=== PATIENT | female | born 1995 | race Caucasian/White ===

== ENCOUNTER 2017-08-04 19:28 | Inpatient (IN) | payer SELFPAY ==
[~2017-08-04] VITALS: Ht 157.5 cm; Wt 51.1 kg
[2017-08-04 19:41] VITALS: BP 125/83; PULSE 115; RESP 16; TEMP 98.2; O2SAT 100
[2017-08-04 19:58] VITALS: RESP 18
[2017-08-04] MEDS ORDERED: IOHEXOL 350 MG/ML 10 ML VIAL (for RAD DIAG) IVCONTRAST ONE (19:59)
[2017-08-04 20:13] VITALS: BP 111/63; PULSE 110; RESP 16; O2SAT 100
--- NOTE | 2017-08-04 20:17 | RADRPT ---
EXAM DATE/TIME: 08/04/2017 19:48 [facility] COMPARISON: No previous studies available for comparison. INDICATIONS : Right side weakness RADIATION DOSE: 56.35 CTDIvol (mGy) This report was called by Dr. Spears to Dr. Acosta at 8: 15 PM MEDICAL HISTORY : None SURGICAL HISTORY : None. ENCOUNTER: Initial ACUITY: 1 day PAIN SCALE: 0/10 LOCATION: cranial TECHNIQUE: Multiple contiguous axial images were obtained of the head. Using automated exposure control and adj ustment of the mA and/or kV according to patient size, radiation dose was kept as low as reasonably a chievable to obtain optimal diagnostic quality images. DICOM format image data is available electro nically for review and comparison. FINDINGS: CEREBRUM: The ventricles are normal for age. No evidence of midline shift, mass lesion, hemorrhage or acute in farction. No extra-axial fluid collections are seen. POSTERIOR FOSSA: The cerebellum and brainstem are intact. The 4th ventricle is midline. The cerebellopontine angle i s unremarkable. EXTRACRANIAL: The visualized portion of the orbits is intact. SKULL: The calvaria is intact. No evidence of skull fracture. CONCLUSION: Normal examination for a patient of this age. Henri Spears MD on August 04, 2017 at 20:12 Board Certified Radiologist. This report was verified electronically.
[2017-08-04 20:20] LABS: AUTOMATED NEUTROPHIL # 3.3 TH/MM3 (1.8-7.7); BASOPHIL % 0.5 % (0.0-2.0); EOSINOPHIL # 0.1 TH/MM3 (0-0.4); EOSINOPHIL % 1.7 % (0.0-4.0); HEMATOCRIT 42.4 % (35.0-46.0); HEMOGLOBIN 14.4 GM/DL (11.6-15.3); LYMPH % 38.7 % (9.0-44.0); LYMPHOCYTE # 2.4 TH/MM3 (1.0-4.8); MEAN CELL VOLUME 89.2 FL (80.0-100.0); MEAN CORPUSCULAR HEMOGLOBIN 30.3 PG (27.0-34.0); MEAN PLATELET VOLUME 7.1 FL (7.0-11.0); MONO % 5.4 % (0.0-8.0); MONOCYTE # 0.3 TH/MM3 (0-0.9); NEUT % 53.7 % (16.0-70.0); PLATELET COUNT 258 TH/MM3 (150-450); RED BLOOD COUNT 4.75 MIL/MM3 (4.00-5.30); RED CELL DISTRIBUTION WIDTH 12.5 % (11.6-17.2); WHITE BLOOD COUNT 6.2 TH/MM3 (4.0-11.0)
[2017-08-04 20:29] LABS: PROTHROMBIN TIME - PATIENT 10.5 SEC (9.8-11.6)
[2017-08-04] MEDS ORDERED: MISCELLANEOUS NURSING INFORMATION XX PRN (20:30)
[2017-08-04] MEDS ORDERED: SODIUM CHLORIDE 0.9% 50 ML BAG IVF ONE (20:30)
[2017-08-04] MEDS ORDERED: ALTEPLASE BOLUS 9 MG/9 ML SYR IV ONE (20:30)
[2017-08-04] MEDS ORDERED: ALTEPLASE DRIP IV ONE (20:30)
--- NOTE | 2017-08-04 20:49 | RADRPT ---
EXAM DATE/TIME: 08/04/2017 19:52 [facility] COMPARISON: No previous studies available for comparison. INDICATIONS : Stroke alert, right sided weakenss. IV CONTRAST: 90 cc Omnipaque 350 (iohexol) IV ; Cumulative dose for multiple exams. RADIATION DOSE: 8.84 CTDIvol (mGy) ; Combined studies MEDICAL HISTORY : None SURGICAL HISTORY : None. ENCOUNTER: Initial ACUITY: 1 day PAIN SCALE: 0/10 LOCATION: cranial TECHNIQUE: Volumetric scanning was performed using a multi-row detector CT scanner. The data was post processed with a variety of visualization algorithms including full volume maximum intensity projection, multi -planar sliding thin slab reformation, curved planar reformation, and surface rendering techniques. Using automated exposure control and adjustment of the mA and/or kV according to patient size, radiat ion dose was kept as low as reasonably achievable to obtain optimal diagnostic quality images. DICO M format image data is available electronically for review and comparison. FINDINGS: There is excellent visualization of the major intracranial arteries out to the second-order branch ve ssels. There is no evidence for aneurysm, vessel truncation or stenosis, and no evidence for vascula r malformation. CONCLUSION: Normal examination for a patient of this age. Henri Spears MD on August 04, 2017 at 20:43 Board Certified Radiologist. This report was verified electronically.
[2017-08-04 20:50] LABS: TROPONIN I LESS THAN 0.02 NG/ML (0.02-0.05)
--- NOTE | 2017-08-04 20:53 | PD ---
HPI Chief Complaint: Stroke Alert Time Seen by Provider: 19:50 Travel History International Travel<30 days: No Contact w/Intl Traveler<30days: No Traveled to known affect area: No History of Present Illness HPI 22-year-old female came to the emergency room with history of shortness of breath sudden onset while she was with her friend at a bar at 6:30 PM. Patient says that she has had 4 cocktails starting from noon up until 6:30 PM. She was sitting and talking with her when she suddenly started to feel short of breath with some chest pain on her right side moving to the center of the chest. She felt like she could not catch her breath. Patient has experienced this kind of sensation in the past which has been diagnosed as panic attacks. Patient does have history of anxiety and depression although currently she is not on any medications. She recognizes this as her panic attack and asked her friend to continue talking to her so that she could calm down. However when her condition was not improving her friend called 911. Patient is from out of town. She is from [place] and currently her and her girlfriend are visiting. As per EMS when they arrived they noticed that she was initially hyperventilating followed by a witnessed syncopal episode in front of them. There was no seizure-like activity at that point. Patient was unconscious for about a minute and after that when she started to come around they noticed that her right upper and right lower extremity was weak. There was inconsistency with her motor activity on the right side. However they did recognize that there was some weakness which prompted them to bring her to the emergency room. Patient was initially tachycardic but after she started to calm down her heart rate came down to the 90s as per EMS. Upon arrival she was a GCS of 15 and hemodynamically stable. She did tell me that she has never experienced this kind of weakness in the past. She says that there is decreased sensation on her right upper and lower extremity as well. Besides anxiety, depression and asthma she has no other medical issues. Patient denies doing any illicit drugs today. [facility] Past Medical History Narrative Medical List of her past medical, surgical, social and family history is reviewed from the nursing note. Asthma: Yes Immunizations Current: Yes Tetanus Vaccination: Unknown Influenza Vaccination: No ?: Unknown LMP: 07/11/17 Social History Alcohol Use: Yes (socially) Tobacco Use: No Substance Use: No Allergies-Medications (Allergen,Severity, Reaction): Coded Allergies: No Known Allergies (Unverified , 08/04/17) Comments No known drug allergies. Reported Meds & Prescriptions Reported Meds & Active Scripts Active Narrative Medication List of her home medications reviewed from the nursing note. Review of Systems Except as stated in HPI: all other systems reviewed are Neg Respiratory: Positive: Shortness of Breath Neurologic: Positive: Weakness Physical Exam Narrative GENERAL: Awake, alert, anxious, no obvious distress SKIN: Focused skin assessment warm/dry. HEAD: Atraumatic. Normocephalic. EYES: Pupils equal and round. No scleral icterus. No injection or drainage. ENT: No nasal bleeding or discharge. Mucous membranes pink and moist. NECK: Trachea midline. No JVD. CARDIOVASCULAR: Regular rate and rhythm. No murmur appreciated. RESPIRATORY: No accessory muscle use. Clear to auscultation. Breath sounds equal bilaterally. GASTROINTESTINAL: Abdomen soft, non-tender, nondistended. Hepatic and splenic margins not palpable. MUSCULOSKELETAL: No obvious deformities. No clubbing. No cyanosis. No edema. NEUROLOGICAL: Awake and alert. No obvious cranial nerve deficits. Patient has no movement of her right upper and right lower extremity. Sensation is decreased. NIH stroke score of 9 PSYCHIATRIC: Appropriate mood and affect; insight and judgment normal. Data Data Last Documented VS Vital Signs Date Time Temp Pulse Resp B/P (MAP) Pulse Ox O2 Delivery O2 Flow Rate FiO2 08/04/17 20:13 110 16 111/63 (79) 100 Room Air 08/04/17 19:41 98.2 Orders Orders Diet Npo (08/05/17 Breakfast) Activity Bed Rest (08/04/17 ) Electrocardiogram (08/04/17 ) I-Stat Profile (08/04/17 19:50) Prothrombin Time / Inr (Pt) (08/04/17 19:50) Act Partial Throm Time (Ptt) (08/04/17 19:50) Complete Blood Count With Diff (08/04/17 19:50) Fibrinogen (08/04/17 19:50) Creatine Kinase (Cpk) (08/04/17 19:50) Troponin I (08/04/17 19:50) Ua Includes Microscopic (08/04/17 19:50) Drug Screen, Random Urine (08/04/17 19:50) Type And Screen (08/04/17 19:50) Ct Brain W/O Iv Contrast(Rout) (08/04/17 ) Cta Brain W Iv Contrast W 3d (08/04/17 19:50) Cta Neck W Iv Contrast W 3d (08/04/17 19:50) Beta Hcg (Quant/Titer) (08/04/17 19:50) Consult Neurology (08/04/17 ) Blood Glucose (08/04/17 19:50) Ecg Monitoring (08/04/17 19:50) Neuro Checks Q2HX12,Q4H (08/04/17 19:50) Nursing Bedside Swallow Assess .ONCE (08/04/17 19:50) Iv Access Insert/Monitor (08/04/17 19:50) NPO (08/04/17 19:50) Oximetry (08/04/17 19:50) Resp Oxygen Nc Stroke (08/04/17 ) Cath For Specimen (08/04/17 19:50) Alcohol (Ethanol) (08/04/17 19:54) (Hub Use Only)Inp Phy Cons/Ref (08/04/17 ) Iohexol 350 Inj (Omnipaque 350 Inj) (08/04/17 19:59) ^ Call Pharmacy (08/04/17 20:28) Nih Stroke Scale - Nihss .ONCE (08/04/17 20:28) Urinary Catheter Insert/Apply (08/04/17 20:28) Anticoagulant Alert (08/04/17 20:28) ^ Post Infusion Restrictions (08/04/17 20:28) ^ Medication Alert (08/04/17 20:28) Vital Signs (Adult) .As directed (08/04/17 20:28) Notify Dr: Blood Pressure (08/04/17 20:28) ^ Medication Alert (08/04/17 20:28) Alteplase Bolus (Activase Bolus) (08/04/17 20:30) Alteplase Drip (Activase Drip) (08/04/17 20:30) Sodium Chloride 0.9% Inj (Ns Inj) (08/04/17 20:30) Misc Nursing Information (08/04/17 20:30) Resp Oxygen Nc Stroke (08/04/17 ) Admit Order (Ed Use Only) (08/04/17 20:43) Labs Laboratory Tests Test 08/04/17 19:50 08/04/17 20:15 White Blood Count 6.2 TH/MM3 Red Blood Count 4.75 MIL/MM3 Hemoglobin 14.4 GM/DL Bedside Hemoglobin 14.3 G/DL Hematocrit 42.4 % Bedside Hematocrit 42.0 % Mean Corpuscular Volume 89.2 FL Mean Corpuscular Hemoglobin 30.3 PG Mean Corpuscular Hemoglobin Concent 34.0 % Red Cell Distribution Width 12.5 % Platelet Count 258 TH/MM3 Mean Platelet Volume 7.1 FL Neutrophils (%) (Auto) 53.7 % Lymphocytes (%) (Auto) 38.7 % Monocytes (%) (Auto) 5.4 % Eosinophils (%) (Auto) 1.7 % Basophils (%) (Auto) 0.5 % Neutrophils # (Auto) 3.3 TH/MM3 Lymphocytes # (Auto) 2.4 TH/MM3 Monocytes # (Auto) 0.3 TH/MM3 Eosinophils # (Auto) 0.1 TH/MM3 Basophils # (Auto) 0.0 TH/MM3 CBC Comment DIFF FINAL Differential Comment Erythrocyte Sedimentation Rate 1 mm/hr Prothrombin Time 10.5 SEC Prothromb Time International Ratio 1.0 RATIO Activated Partial Thromboplast Time 25.2 SEC Fibrinogen 257 mg/dL Bedside Sodium 144 MMOL/L Bedside Potassium 3.6 MMOL/L Bedside Chloride 105 MMOL/L Bedside Blood Urea Nitrogen 7 MG/DL Bedside Creatinine 1.0 MG/DL Bedside Glucose 86 MG/DL Hemoglobin A1c 4.9 % Total Creatine Kinase 75 U/L Troponin I LESS THAN 0.02 NG/ML Triglycerides Level 107 MG/DL Cholesterol Level 150 MG/DL LDL Cholesterol 60 MG/DL HDL Cholesterol 69.1 MG/DL Cholesterol/HDL Ratio 2.17 RATIO Vitamin B12 Level 347 PG/ML Thyroid Stimulating Hormone 3rd Gen 1.440 uIU/ML Human Chorionic Gonadotropin, Quant LESS THAN 1 MIU/ML Ethyl Alcohol Level 143 MG/DL Urine Color LIGHT-YELLOW Urine Turbidity CLEAR Urine pH 5.5 Urine Specific [place] 1.009 Urine Protein NEG mg/dL Urine Glucose (UA) TRACE mg/dL Urine Ketones NEG mg/dL Urine Occult Blood NEG Urine Nitrite NEG Urine Bilirubin NEG Urine Urobilinogen LESS THAN 2.0 MG/DL Urine Leukocyte Esterase NEG Urine RBC 1 /hpf Urine WBC 2 /hpf Urine Squamous Epithelial Cells 2 /hpf Urine Amorphous Sediment RARE Urine Bacteria RARE /hpf Urine Opiates Screen NEG Urine Barbiturates Screen NEG Urine Amphetamines Screen POS Urine Benzodiazepines Screen NEG Urine Cocaine Screen NEG Urine Cannabinoids Screen NEG MDM Medical Decision Making Medical Screen Exam Complete: Yes Emergency Medical Condition: Yes Medical Record Reviewed: Yes Interpretation(s) Twelve-lead EKG was reviewed by me. No sinus rhythm, normal axis, tachycardia, nonspecific ST-T wave changes. Heart rate of 109 bpm. Differential Diagnosis Acute CVA, head bleed, anxiety, conversion disorder Narrative Course 8:51 PM a stroke alert was called based on the clinical presentation and the time window. The radiologist called back to let me know that the head CT was negative for head bleed. I discussed the case with the on-call neurologist and aspirin him he wanted the patient to be reassessed when she came back from the CT scan and based on the repeat NIH stroke score and CT report a decision for a TPA would be done. CT scan was negative and I reassessed the patient once she returned from CT. At this point she was able to move her right upper and right lower extremity a little better than before but was not back to the baseline. Her NIH stroke score at this point was 5. He wanted me to discuss about TPA and the risk of bleeding which I did with the patient and after explaining the possible risk of intracranial bleed but the benefit of TPA if it is a stroke she chose to go ahead and give TPA. Her friend was at this point in the room and she had some questions which were answered to the best of my ability as well. TPA was ordered. I discussed the case with the extruding department supervisor Dr. Quinonez and patient will be admitted to him. Meanwhile the CTA of the head is reported as negative by the radiologist. Procedures EKG Prior to Arrival: No Physician Communication Physician Communication Dr. Cristiano Pang Diagnosis Primary Impression: Acute CVA (cerebrovascular accident) Admitting Information Admitting Physician Requests: Admit Scripts Aspirin (Aspirin) 81 Mg Chew 81 MG CHEW DAILY for Stroke Prevention for 120 Days, #120 TAB 0 Refills Prov: Elicia Ramon MD 08/05/17 Gabby Acosta MD Aug 04, 2017 20:53
[2017-08-04 21:03] LABS: AMORPHOUS SEDIMENT, URINE RARE; BACTERIA, URINE RARE /hpf; BILIRUBIN, URINE NEG (NEG); BLOOD, URINE NEG (NEG); GLUCOSE,URINE TRACE mg/dL (NEG); KETONE, URINE NEG (NEG); NITRITE,URINE NEG (NEG); PH, URINE 5.5 (5.0-8.5); SQUAMOUS EPITHELIAL CELL URINE 2 /hpf (0-5); URINE COLOR LIGHT-YELLOW (YELLW/STRAW); URINE LEUKOCYTE ESTERASE NEG (NEG)
--- NOTE | 2017-08-04 21:15 | RADRPT ---
EXAM DATE/TIME: 08/04/2017 19:52 [facility] COMPARISON: No previous studies available for comparison. INDICATIONS : Stroke alert, right sided weakenss. IV CONTRAST: 90 cc Omnipaque 350 (iohexol) IV ; Cumulative dose for multiple exams. RADIATION DOSE: 8.84 CTDIvol (mGy) ; Combined studies MEDICAL HISTORY : None SURGICAL HISTORY : None. ENCOUNTER: Initial ACUITY: 1 day PAIN SCALE: 0/10 LOCATION: neck Elevated flow velocities and ICA/CCA ratios have been found to correlate with increased degrees of vessel stenosis, calculated as percentage of diameter relative to a normal segment of distal ICA/CCA. TECHNIQUE: Volumetric scanning was performed using a multirow detector CT scanner. The data was post processed with a variety of visualization algorithms including full-volume maximum intensity projection, multip lanar sliding thin-slab reformation, curved-planar reformation, and surface-rendering techniques. Us ing automated exposure control and adjustment of the mA and/or kV according to patient size, radiatio n dose was kept as low as reasonably achievable to obtain optimal diagnostic quality images. DICOM f ormat image data is available electronically for review and comparison. FINDINGS: AORTIC ARCH: There is a three-vessel origin of the great vessels from the aorta. No evidence of ostial narrowing. RIGHT CAROTID: The common carotid artery is intact. The carotid bulb has a normal configuration without ulceration o r narrowing. The internal carotid artery lumen is smooth without stenosis. The external carotid [place] is intact. LEFT CAROTID: The common carotid artery is intact. The carotid bulb has a normal configuration without ulceration or narrowing. The internal carotid artery lumen is smooth without stenosis. The external carotid ar david is intact. VERTEBRALS: The vertebral arteries have a symmetric diameter. No stenotic lesions are seen. CONCLUSION: Normal examination for a patient of this age. Henri Spears MD on August 04, 2017 at 21:09 Board Certified Radiologist. This report was verified electronically.
[2017-08-04 22:09] LABS: CHOLESTEROL 150 MG/DL (120-200)
--- NOTE | 2017-08-04 22:13 | EKG ---
Date Performed: 08/04/2017 Time Performed: 20:14:03 PTAGE: 22 years EKG: SINUS TACHYCARDIA ABNORMAL RHYTHM ECG NO PREVIOUS TRACING DOCTOR: Abdoulaye England Interpretating Date/Time 08/04/2017 22:11:25
[2017-08-04 22:30] LABS: HEMOGLOBIN A1C 4.9 % (4.3-6.0)
[2017-08-04 22:34] LABS: CHOLESTEROL/ HDL RATIO 2.17 RATIO; HDL CHOLESTEROL 69.1 MG/DL (40.0-60.0); LDL CHOLESTEROL 60 MG/DL (0-99); TRIGLYCERIDES 107 MG/DL (42-150)
--- NOTE | 2017-08-04 23:27 | HHI.HP ---
HPI Service Critical Care Medicine Primary Care Physician Unknown Admission Diagnosis acute CVA Diagnosis: Travel History International Travel<30 Days: No Contact w/Intl Traveler <30 Da: No Traveled to Known Affected Are: No History of Present Illness 22-year-old female came to the emergency room with history of shortness of breath sudden onset while she was with her friend at a bar at 6:30 PM. Patient says that she has had 4 cocktails starting from noon up until 6:30 PM. She was sitting and talking with her when she suddenly started to feel short of breath with some chest pain on her right side moving to the center of the chest. She felt like she could not catch her breath. Patient has experienced this kind of sensation in the past which has been diagnosed as panic attacks. Patient does have history of anxiety and depression although currently she is not on any medications. She recognizes this as her panic attack and asked her friend to continue talking to her so that she could calm down. However when her condition was not improving her friend called 911. Patient is from out of town. As per EMS when they arrived they noticed that she was initially hyperventilating followed by a witnessed syncopal episode in front of them. There was no seizure-like activity at that point. Patient was unconscious for about a minute and after that when she started to come around they noticed that her right upper and right lower extremity was weak. There was in consistency with her motor activity on the right side. However they did recognize that there was some weakness which prompted them to bring her to the emergency room. Patient was initially tachycardic but after she started to calm down her heart rate came down to the 90s as per EMS. Upon arrival she was a GCS of 15 and hemodynamically stable. Review of Systems Constitutional: DENIES: Diaphoretic episodes, Fatigue, Fever, Weight gain, Weight loss, Chills, Dizziness, Change in appetite, Night Sweats Endocrine: DENIES: Abnorml menstrual pattern, Heat/cold intolerance, Polydipsia , Polyuria, Polyphagia Eyes: DENIES: Blurred vision, Diplopia, Eye inflammation, Eye pain, Vision loss , Photosensitivity, Double Vision Ears, nose, mouth, throat: DENIES: Tinnitus, Hearing loss, Vertigo, Nasal discharge, Oral lesions, Throat pain, Hoarseness, Ear Pain, Running Nose, Epistaxis, Sinus Pain, Toothache, Odynophagia Respiratory: COMPLAINS OF: Shortness of breath, DENIES: Apneas, Cough, Snoring , Wheezing, Hemoptysis, Sputum production Cardiovascular: DENIES: Chest pain, Palpitations, Syncope, Dyspnea on Exertion , PND, Lower Extremity Edema, Orthopnea, Claudication Gastrointestinal: DENIES: Abdominal pain, Black stools, Bloody stools, Constipation, Diarrhea, Nausea, Vomiting, Difficulty Swallowing, Anorexia Genitourinary: DENIES: Abnormal vaginal bleeding, Dysmenorrhea, Dyspareunia, Sexual dysfunction, Urinary frequency, Urinary incontinence, Urgency, Hematuria , Dysuria, Nocturia, Vaginal discharge Musculoskeletal: DENIES: Joint pain, Muscle aches, Stiffness, Joint Swelling, Back pain, Neck pain Integumentary: DENIES: Abnormal pigmentation, Pruritus, Rash, Nail changes, Breast masses, Breast skin changes, Nipple discharge Hematologic/lymphatic: DENIES: Bruising, Lymphadenopathy Immunologic/allergic: DENIES: Eczema, Urticaria Neurologic: COMPLAINS OF: Abnormal gait, Localized weakness, Poor Balance, DENIES: Headache, Paresthesias, Seizures, Speech Problems, Tremor Psychiatric: COMPLAINS OF: Anxiety, Depression, DENIES: Confusion, Mood changes , Hallucinations, Agitation, Suicidal Ideation, Homicidal Ideation, Delusions Past Family Social History Allergies: Coded Allergies: No Known Allergies (Unverified , 08/04/17) Past Medical History Anxiety Depression Bronchial asthma Past Surgical History None Reported Medications Reported Meds & Active Scripts Active No Active Prescriptions or Reported Medications Active Ordered Medications Current Medications Medications (Trade) Dose Ordered Sig/Jaclyn Route PRN Reason Start Time Stop Time Status Last Admin Dose Admin Miscellaneous Information No Heparin, Warfarin, Aspir... UNSCH PRN XX SEE DOSE INSTRUCTIONS 08/04/17 20:30 08/05/17 20:29 Sodium Chloride 1,000 ml @ 84 mls/hr [id number] IV 08/04/17 23:28 08/05/17 00:56 Sodium Chloride (NS Flush) 2 ml UNSCH PRN IV FLUSH FLUSH AFTER USING IV ACCESS 08/04/17 23:30 Sodium Chloride (NS Flush) 2 ml BID IV FLUSH 08/05/17 09:00 Acetaminophen (Tylenol) 650 mg Q6H PRN PO PAIN 1-10 AND/OR FEVER >101F 08/04/17 23:30 Famotidine (Pepcid Inj) 20 mg Q12HR IV PUSH 08/05/17 09:00 Ondansetron HCl (Zofran Inj) 4 mg Q6H PRN IV PUSH NAUSEA OR VOMITING 08/04/17 23:30 Albuterol/ Ipratropium (Duoneb Neb) 1 ampule Q2HR NEB PRN INH WHEEZING 08/04/17 23:30 Enoxaparin Sodium (Lovenox Inj) 40 mg Q24H SQ 08/05/17 23:30 Miscellaneous Information 1 Q361D XX 08/04/17 23:30 Chlorhexidine Gluconate (Chlorhexidine 2% Cloth) 3 pack Taper DAILY@04 TOP 08/05/17 04:00 08/01/18 03:59 Chlorhexidine Gluconate (Chlorhexidine 2% Cloth) 3 pack UNSCH PRN TOP HYGIENIC CARE 08/04/17 23:30 Senna/Docusate Sodium ([place]-Colace) 1 tab BID PO 08/05/17 09:00 Magnesium Hydroxide (Milk Of Magnesia Liq) 30 ml Q12H PRN PO Mild constipation 08/04/17 23:30 Sennosides (Senokot) 17.2 mg Q12H PRN PO Moderate constipation 08/04/17 23:30 Bisacodyl (Dulcolax Supp) 10 mg DAILY PRN RECTAL SEVERE CONSITIPATION/ IF NPO 08/04/17 23:30 Lactulose (Lactulose Liq) 30 ml DAILY PRN PO SEVERE CONSITIPATION/ IF PO 08/04/17 23:30 Family History No family history significant of early coronary artery disease or malignancy Social History Alcohol socially No tobacco abuse No illicit drugs today Physical Exam Vital Signs Vital Signs Date Time Temp Pulse Resp B/P (MAP) Pulse Ox O2 Delivery O2 Flow Rate FiO2 08/04/17 22:41 100 Room Air 08/04/17 22:12 08/04/17 21:20 100 Room Air 08/04/17 20:13 110 16 111/63 (79) 100 Room Air 08/04/17 19:58 18 08/04/17 19:58 100 Room Air 08/04/17 19:54 110 16 100 Room Air 08/04/17 19:41 98.2 115 16 125/83 (97) 100 Physical Exam GENERAL: Awake, alert, anxious, no obvious distress SKIN: Focused skin assessment warm/dry. HEAD: Atraumatic. Normocephalic. EYES: Pupils equal and round. No scleral icterus. No injection or drainage. ENT: No nasal bleeding or discharge. Mucous membranes pink and moist. NECK: Trachea midline. No JVD. CARDIOVASCULAR: Regular rate and rhythm. No murmur appreciated. RESPIRATORY: No accessory muscle use. Clear to auscultation. Breath sounds equal bilaterally. GASTROINTESTINAL: Abdomen soft, non-tender, nondistended. Hepatic and splenic margins not palpable. MUSCULOSKELETAL: No obvious deformities. No clubbing. No cyanosis. No edema. NEUROLOGICAL: Awake and alert. No obvious cranial nerve deficits. Patient has no movement of her right upper and right lower extremity. Sensation is decreased. Laboratory Laboratory Tests Test 08/04/17 19:50 08/04/17 20:15 White Blood Count 6.2 Red Blood Count 4.75 Hemoglobin 14.4 Bedside Hemoglobin 14.3 Hematocrit 42.4 Bedside Hematocrit 42.0 Mean Corpuscular Volume 89.2 Mean Corpuscular Hemoglobin 30.3 Mean Corpuscular Hemoglobin Concent 34.0 Red Cell Distribution Width 12.5 Platelet Count 258 Mean Platelet Volume 7.1 Neutrophils (%) (Auto) 53.7 Lymphocytes (%) (Auto) 38.7 Monocytes (%) (Auto) 5.4 Eosinophils (%) (Auto) 1.7 Basophils (%) (Auto) 0.5 Neutrophils # (Auto) 3.3 Lymphocytes # (Auto) 2.4 Monocytes # (Auto) 0.3 Eosinophils # (Auto) 0.1 Basophils # (Auto) 0.0 CBC Comment DIFF FINAL Differential Comment Erythrocyte Sedimentation Rate 1 Prothrombin Time 10.5 Prothromb Time International Ratio 1.0 Activated Partial Thromboplast Time 25.2 Fibrinogen 257 Bedside Sodium 144 Bedside Potassium 3.6 Bedside Chloride 105 Bedside Blood Urea Nitrogen 7 Bedside Creatinine 1.0 Bedside Glucose 86 Hemoglobin A1c 4.9 Total Creatine Kinase 75 Troponin I LESS THAN 0.02 Triglycerides Level 107 Cholesterol Level 150 LDL Cholesterol 60 HDL Cholesterol 69.1 Cholesterol/HDL Ratio 2.17 Vitamin B12 Level 347 Thyroid Stimulating Hormone 3rd Gen 1.440 Human Chorionic Gonadotropin, Quant LESS THAN 1 Ethyl Alcohol Level 143 Urine Color LIGHT-YELLOW Urine Turbidity CLEAR Urine pH 5.5 Urine Specific [place] 1.009 Urine Protein NEG Urine Glucose (UA) TRACE Urine Ketones NEG Urine Occult Blood NEG Urine Nitrite NEG Urine Bilirubin NEG Urine Urobilinogen LESS THAN 2.0 Urine Leukocyte Esterase NEG Urine RBC 1 Urine WBC 2 Urine Squamous Epithelial Cells 2 Urine Amorphous Sediment RARE Urine Bacteria RARE Urine Opiates Screen NEG Urine Barbiturates Screen NEG Urine Amphetamines Screen POS Urine Benzodiazepines Screen NEG Urine Cocaine Screen NEG Urine Cannabinoids Screen NEG Result Diagram: 08/04/171949 Imaging Last 24 hours Impressions Neck CTA 08/04/171949 Signed Impressions: Service Date/Time: Friday, August 04, 2017 19:52 - CONCLUSION: Normal examination for a patient of this age. Henri Spears MD Head CTA 08/04/171949 Signed Impressions: Service Date/Time: Friday, August 04, 2017 19:52 - CONCLUSION: Normal examination for a patient of this age. Henri Spears MD Septic Shock Reassessment Septic shock perfusion: reassessment completed Caprini VTE Risk Assessment Caprini VTE Risk Assessment: No/Low Risk (score <= 1) Caprini Risk Assessment Model Point Value = 1 Point Value = 2 Point Value = 3 Point Value = 5 Age 41-60 Minor surgery BMI > 25 kg/m2 Swollen legs Varicose veins or History of unexplained or recurrent spontaneous Oral contraceptives or hormone replacement Sepsis (< 1 month) Serious lung disease, including pneumonia (< 1 month) Abnormal pulmonary function Acute myocardial infarction Congestive heart failure (< 1 month) History of inflammatory bowel disease Medical patient at bed rest Age 61-74 Arthroscopic surgery Major open surgery (> 45 min) Laparoscopic surgery (> 45 min) Malignancy Confined to bed (> 72 hours) Immobilizing plaster cast Central venous access Age >= 75 History of VTE Family history of VTE Factor V Leiden Prothrombin [id number] Lupus anticoagulant Anticardiolipin antibodies Elevated serum homocysteine Heparin-induced thrombocytopenia Other congenital or acquired thrombophilia Stroke (< 1 month) Elective arthroplasty Hip, pelvis, or leg fracture Acute spinal cord injury (< 1 month) Prophylaxis Regimen Total Risk Factor Score Risk Level Prophylaxis Regimen 0-1 Low Early ambulation 2 Moderate Order ONE of the following: *Sequential Compression Device (SCD) *Heparin 5000 units SQ BID 3-4 Higher Order ONE of the following medications: *Heparin 5000 units SQ TID *Enoxaparin/Lovenox 40 mg SQ daily (WT < 150 kg, CrCl > 30 mL/min) *Enoxaparin/Lovenox 30 mg SQ daily (WT < 150 kg, CrCl > 10-29 mL/min) *Enoxaparin/Lovenox 30 mg SQ BID (WT < 150 kg, CrCl > 30 mL/min) AND/OR *Sequential Compression Device (SCD) 5 or more Highest Order ONE of the following medications: *Heparin 5000 units SQ TID (Preferred with Epidurals) *Enoxaparin/Lovenox 40 mg SQ daily (WT < 150 kg, CrCl > 30 mL/min) *Enoxaparin/Lovenox 30 mg SQ daily (WT < 150 kg, CrCl > 10-29 mL/min) *Enoxaparin/Lovenox 30 mg SQ BID (WT < 150 kg, CrCl > 30 mL/min) AND *Sequential Compression Device (SCD) Assessment and Plan Assessment and Plan CVA/TIA - Status post TPA administration - Head CT and/CTA of the head and neck negative - Further per neurology Panic attack - Underlying anxiety and depression - Xanax when necessary DVT GI prophylaxis - Teds SCDs - Early aggressive mobilization - Pepcid Critical Care: The total critical care time was 35 minutes. Time to perform other separately billable procedures was not included in the critical care time. Mayur Quinonez MD Aug 04, 2017 11:27 pm
[2017-08-04] MEDS ORDERED: ONDANSETRON HCL 4 MG/2 ML VIAL IV PUSH PRN (23:30)
[2017-08-04] MEDS ORDERED: MISCELLANEOUS NURSING INFORMATION XX SCH (23:30)
[2017-08-04] MEDS ORDERED: SODIUM CHLORIDE 0.9% FLUSH 10 ML FLUSH IV FLUSH PRN (23:30)
[2017-08-04] MEDS ORDERED: RESP: ALBUTEROL 2.5 MG/IPRATROPIUM 0.5 MG NEB (PRN) INH (23:30)
[2017-08-04] MEDS ORDERED: SENNOSIDES 8.6 MG TAB PO PRN (23:30)
[2017-08-04] MEDS ORDERED: BISACODYL 10 MG SUPP RECTAL PRN (23:30)
[2017-08-04] MEDS ORDERED: LACTULOSE SYRUP 20 GM/30 ML CUP PO PRN (23:30)
[2017-08-04] MEDS ORDERED: CHLORHEXIDINE GLUCONATE 2 % 1 PACK (2 CLOTHS) TOP PRN (23:30)
[2017-08-04] MEDS ORDERED: MAGNESIUM HYDROXIDE SUSP 30 ML CUP PO PRN (23:30)
[2017-08-04] MEDS ORDERED: ACETAMINOPHEN 325 MG TAB PO PRN (23:30)
[2017-08-05] VITALS (12 sets, daily range): BP systolic 99–116; BP diastolic 66–77; PULSE 78–98; RESP 14–22; TEMP 98.2–98.6; O2SAT 98–100
[2017-08-05] MEDS: SODIUM CHLOR 0.9% 1000 ML INJ 1,000 ML IV SCH ×2 (00:56→11:20)
[2017-08-05] MEDS ORDERED: CHLORHEXIDINE GLUCONATE 2 % 1 PACK (2 CLOTHS) TOP SCH (04:00)
[2017-08-05 04:18] LABS: AUTOMATED NEUTROPHIL # 5.4 TH/MM3 (1.8-7.7); BASOPHIL # 0.1 TH/MM3 (0-0.2); BASOPHIL % 0.6 % (0.0-2.0); EOSINOPHIL # 0.2 TH/MM3 (0-0.4); EOSINOPHIL % 1.8 % (0.0-4.0); HEMATOCRIT 37.5 % (35.0-46.0); HEMOGLOBIN 13.1 GM/DL (11.6-15.3); LYMPH % 27.5 % (9.0-44.0); LYMPHOCYTE # 2.3 TH/MM3 (1.0-4.8); MEAN CELL VOLUME 88.2 FL (80.0-100.0); MEAN CORPUSCULAR HEMOGLOBIN 30.7 PG (27.0-34.0); MEAN CORPUSCULAR HGB CONC 34.8 % (32.0-36.0); MONO % 6.7 % (0.0-8.0); MONOCYTE # 0.6 TH/MM3 (0-0.9); NEUT % 63.4 % (16.0-70.0); PLATELET COUNT 217 TH/MM3 (150-450); RED BLOOD COUNT 4.25 MIL/MM3 (4.00-5.30); RED CELL DISTRIBUTION WIDTH 12.8 % (11.6-17.2); WHITE BLOOD COUNT 8.5 TH/MM3 (4.0-11.0)
[2017-08-05 04:26] LABS: INTERNATIONAL NORMALIZED RATIO 1.1 RATIO; PROTHROMBIN TIME - PATIENT 11.3 SEC (9.8-11.6)
[2017-08-05 04:51] LABS: ALBUMIN 3.9 GM/DL (3.4-5.0); ALT (GPT) 16 U/L (10-53); AST (GOT) 13 U/L (15-37); BICARBONATE 25.6 MEQ/L (21.0-32.0); BLOOD UREA NITROGEN 10 MG/DL (7-18); CALCIUM 7.9 MG/DL (8.5-10.1); CHLORIDE 110 MEQ/L (98-107); CREATININE 0.78 MG/DL (0.50-1.00); GLOMERULAR FILTRATION RATE 91 ML/MIN (>89); GLUCOSE,RANDOM 91 MG/DL (74-106); MAGNESIUM 1.9 MG/DL (1.5-2.5); PHOSPHORUS 4.2 MG/DL (2.5-4.9); SODIUM (NA) 143 MEQ/L (136-145)
[2017-08-05 04:53] LABS: ALKALINE PHOSPHATASE 43 U/L (45-117); TOTAL BILIRUBIN ADULT 0.5 MG/DL (0.2-1.0); TOTAL PROTEIN 6.5 GM/DL (6.4-8.2)
--- NOTE | 2017-08-05 08:06 | PD.CONS ---
History of Present Illness Service Neurology Consult Requested By er Reason for Consult stroke alert Primary Care Physician Unknown History of Present Illness 22-year-old female came to er for dyspnea noted to have rt sided weakness about an hour prior to arrival. was at a bar drinking 3-4 etoh beverages prior to arrival. er md called a stroke alert. pt states she was not aware she was weak on the rt side. denies any previous occurrence.call center called me at 756pm. 821 ct brain negative. told er md to discuss tpa with pt. due to persistent weakness, nihss 5 iv tpa offered to pt r/b d/w. she agreed to tx and was given within 45 mins of the stroke alert being called by er md. ct brain, cta brain, carotids nml.she had difficulty raising her rt arm and rt leg however this has improved this am. in fact she wants to leave. she wants to catch her early am flight tomorrow to go back to [place]. i discussed the necessary testing we would need to complete and additional testing that could be done up [place]. the patient and her mother(who was on speaker phone) would like to complete rest of testing up [place]. no head/neck trauma. admits to anxiety but denies anything out of the usual for her. no hx of conversion/hemiplegic migraine/sz. not any danielle medications. no ocp. etoh level 143 glucose 86 bp normotensive in er. uds: + amphetamines- pt denies ingestion she denies any headache, hx of lupus,clots, cardiac disease, sz. Review of Systems as above and admit hp Past Family Social History Allergies: Coded Allergies: No Known Allergies (Unverified , 08/04/17) Past Medical History Anxiety Depression Bronchial asthma Past Surgical History None Reported Medications Reported Meds & Active Scripts Active No Active Prescriptions or Reported Medications Family History No family history significant of early coronary artery disease or malignancy Social History Alcohol socially No tobacco abuse No illicit drugs today Review of Systems All other ROS: ROS reviewed as documented in chart Past Family Social History Allergies: Coded Allergies: No Known Allergies (Unverified , 08/04/17) Active Ordered Medications Current Medications Medications (Trade) Dose Ordered Sig/Jaclyn Route Start Time Stop Time Status Last Admin Miscellaneous Information No Heparin, Warfarin, Aspir... UNSCH PRN XX 08/04/17 20:30 1/24/18 20:29 Sodium Chloride 1,000 ml @ 84 mls/hr [id number] IV 08/04/17 23:28 08/05/17 00:56 (NS Flush) 2 ml UNSCH PRN IV FLUSH 08/04/17 23:30 (NS Flush) 2 ml BID IV FLUSH 08/05/17 09:00 (Tylenol) 650 mg Q6H PRN PO 08/04/17 23:30 (Pepcid Inj) 20 mg Q12HR IV PUSH 08/05/17 09:00 (Zofran Inj) 4 mg Q6H PRN IV PUSH 08/04/17 23:30 (Duoneb Neb) 1 ampule Q2HR NEB PRN INH 08/04/17 23:30 (Lovenox Inj) 40 mg Q24H SQ 08/05/17 23:30 Miscellaneous Information 1 Q361D XX 08/04/17 23:30 (Chlorhexidine 2% Cloth) 3 pack Taper DAILY@04 TOP 08/05/17 04:00 08/01/18 03:59 (Chlorhexidine 2% Cloth) 3 pack UNSCH PRN TOP 08/04/17 23:30 ([place]-Colace) 1 tab BID PO 08/05/17 09:00 (Milk Of Magnesia Liq) 30 ml Q12H PRN PO 08/04/17 23:30 (Senokot) 17.2 mg Q12H PRN PO 08/04/17 23:30 (Dulcolax Supp) 10 mg DAILY PRN RECTAL 08/04/17 23:30 (Lactulose Liq) 30 ml DAILY PRN PO 08/04/17 23:30 Exam I&O / VS Vital Signs Date Time Temp Pulse Resp B/P (MAP) Pulse Ox O2 Delivery O2 Flow Rate FiO2 08/05/17 06:00 78 08/05/17 04:00 98.2 89 22 102/66 (78) 99 08/05/17 04:00 89 08/05/17 02:00 94 08/05/17 02:00 98.2 86 14 99/67 (78) 08/05/17 01:00 81 14 108/74 (85) 98 08/05/17 00:00 98.3 98 16 110/69 (83) 98 08/05/17 00:00 86 08/04/17 22:41 100 Room Air 08/04/17 22:12 08/04/17 21:20 100 Room Air 08/04/17 20:13 110 16 111/63 (79) 100 Room Air 08/04/17 19:58 18 08/04/17 19:58 100 Room Air 08/04/17 19:54 110 16 100 Room Air 08/04/17 19:41 98.2 115 16 125/83 (97) 100 General: Alert and Oriented, No acute distress Eye: EOMI Respiratory: Non-labored respirations Cardiology: Normal rate Musculoskeletal: ROM Neurologic: Alert, Oriented, Normal sensory, Normal motor, CN II-XII intact, Normal DTR's Psychiatric: Cooperative, Appropriate mood & affect, Normal judgement Exam Comments ox 3, no aphasia, articulate, follows, pleasant, eomi, vff, face sym, minimal rt hemiparesis 5-/5 no drift mild orbiting, sensory normal, no ataxia, nihss 0 Review/Management Diagnosis/Plan: (1) Acute CVA (cerebrovascular accident) ICD Codes: I63.9 - Cerebral infarction, unspecified Status: Acute Plan: possible lacunar tia/infarct s/p iv tpa ? amphetamine as risk factor. functional weakness possible but felt lesser likely lipids in range cta's nml greatly improved after tpa recs f/u mri brain f/u ct brain at 24 hrs. if negative for ich, pt can be dc'd per her/mother's wishes [place] 81mg qd. would suggest [place], hypercoagulable panel post tpa order set (2) Ethanolism ICD Codes: F10.20 - Alcohol dependence, uncomplicated Status: Acute (3) Anxiety ICD Codes: F41.9 - Anxiety disorder, unspecified Status: Chronic Du Ching MD Aug 05, 2017 08:06
[2017-08-05] MEDS: FAMOTIDINE 20 MG/2 ML VIAL IV PUSH SCH ×2 (08:17→21:00)
[2017-08-05] MEDS: SODIUM CHLORIDE 0.9% FLUSH 10 ML FLUSH IV FLUSH SCH ×2 (08:17→21:00)
[2017-08-05] MEDS: DOCUSATE SODIUM 50 MG/SENNA 8.6 MG TAB PO SCH ×2 (08:17→21:00)
--- NOTE | 2017-08-05 09:58 | HHI.CCPN ---
Subjective Remarks/Hospital Course 08/04: 22-year-old female came to the emergency room with history of shortness of breath sudden onset while she was with her friend at a bar at 6:30 PM. Patient says that she has had 4 cocktails starting from noon up until 6:30 PM. She was sitting and talking with her when she suddenly started to feel short of breath with some chest pain on her right side moving to the center of the chest. She felt like she could not catch her breath. Patient has experienced this kind of sensation in the past which has been diagnosed as panic attacks. Patient does have history of anxiety and depression although currently she is not on any medications. She recognizes this as her panic attack and asked her friend to continue talking to her so that she could calm down. However when her condition was not improving her friend called 911. Patient is from out of town. As per EMS when they arrived they noticed that she was initially hyperventilating followed by a witnessed syncopal episode in front of them. There was no seizure-like activity at that point. Patient was unconscious for about a minute and after that when she started to come around they noticed that her right upper and right lower extremity was weak. There was in consistency with her motor activity on the right side. However they did recognize that there was some weakness which prompted them to bring her to the emergency room. Patient was initially tachycardic but after she started to calm down her heart rate came down to the 90s as per EMS. Upon arrival she was a GCS of 15 and hemodynamically stable. 08/05: Patient doing well, right sided weakness much improved. She denies any complaints, no N/V, headache, photophobia, abd pain, no CP, dyspnea, nor palpitations. Objective Vital Signs Date Time Temp Pulse Resp B/P (MAP) Pulse Ox O2 Delivery O2 Flow Rate FiO2 08/05/17 06:00 78 08/05/17 04:00 98.2 22 102/66 (78) 99 08/04/17 22:41 Room Air Intake and Output 08/05/17 08/05/17 08/06/17 08:00 16:00 00:00 Intake Total 0 ml Output Total 900 ml Balance -900 ml Result Diagram: 08/05/17 0353 08/05/17 0353 Imaging Last 24 hours Impressions Neck CTA 1/23/18 1950 Signed Impressions: Service Date/Time: Friday, August 04, 2017 19:52 - CONCLUSION: Normal examination for a patient of this age. Henri Spears MD Head CTA 08/04/171949 Signed Impressions: Service Date/Time: Friday, August 04, 2017 19:52 - CONCLUSION: Normal examination for a patient of this age. Henri Spears MD Objective Remarks GENERAL: Awake, alert, in no distress. HEAD: Atraumatic. Normocephalic. EYES: Pupils equal and reactive. No scleral icterus. No injection or drainage. ENT: No nasal bleeding or discharge. MMM, no thrush. NECK: Trachea midline. No JVD. CARDIOVASCULAR: Regular heart sounds, no murmurs. RESPIRATORY: Clear bilateral, good air entry, no wheezes. GASTROINTESTINAL: Abdomen soft, non-tender, nondistended, BS normal. MUSCULOSKELETAL: No obvious deformities. No clubbing. No cyanosis. No edema. NEUROLOGICAL: Awake, alert and oriented X 3, JULIO C, EOMI, smile symmetric, tongue midline, shrugs shoulders, hearing intact. Motor 4/5 over RUE, 5/5 RLE, 5 /5 LUE and LLE. Sensation symmetric. A/P Assessment and Plan CVA/TIA - Status post TPA administration - Brain MRI pending - Repeat CT head tonight - Neurology following - Neuro checks Panic attack - Underlying anxiety and depression - Xanax when/if necessary DVT GI prophylaxis - Teds SCDs - Ulysses Quigley MD Aug 05, 2017 09:58
--- NOTE | 2017-08-05 10:03 | RADRPT ---
EXAM DATE/TIME: 08/05/2017 09:29 [facility] COMPARISON: No previous studies available for comparison. INDICATIONS : Right sided weakness. Now resolved. Post TPA. MEDICAL HISTORY : None. SURGICAL HISTORY : None. ENCOUNTER: Subsequent ACUITY: 2 day PAIN SCORE: 0/10 LOCATION: head. TECHNIQUE: Multiplanar, multisequence MRI of the brain was performed without contrast. FINDINGS: CEREBRUM: The ventricles are normal for age. No evidence of midline shift, mass lesion, hemorrhage or acute in farction. No extraaxial fluid collections are seen. The pituitary gland and suprasellar cistern are normal in configuration. WHITE MATTER: No significant signal abnormalities are seen in the white matter. POSTERIOR FOSSA: The cerebellum and brainstem are intact. The 4th ventricle is midline. The cerebellopontine angle is unremarkable. The cerebellar tonsils are normal in position. DIFFUSION IMAGING: No focal areas of restricted diffusion are seen. No evidence of acute infarction. EXTRACRANIAL: The visualized portions of the orbits and paranasal sinuses are unremarkable. CONCLUSION: Unremarkable MRI the brain. Juan Browning MD on August 05, 2017 at 9:57 Board Certified Radiologist. This report was verified electronically.
--- NOTE | 2017-08-05 11:48 | RADRPT ---
EXAM DATE/TIME: 08/05/2017 11:17 [facility] COMPARISON: No previous studies available for comparison. INDICATIONS : Emboli. MEDICAL HISTORY : Asthma. Dyspnea. Depression. CVA. SURGICAL HISTORY : None. ENCOUNTER: Initial ACUITY: 1 day PAIN SCORE: 0/10 LOCATION: Bilateral leg. TECHNIQUE: Venous ultrasound of the left and right leg was performed from the inguinal ligament to the proximal calf. Real-time, color Doppler and spectral tracing, compression and augmentation techniques were us ed. FINDINGS: RIGHT LEG: There is normal compressibility of the deep venous system from the inguinal region to the proximal ca lf. No echogenic clot is seen in the lumen of the common femoral, femoral, popliteal, and posterior tibial veins. There is a normal response of the venous system to proximal and distal augmentation an d respiration. LEFT LEG: There is normal compressibility of the deep venous system from the inguinal region to the proximal ca lf. No echogenic clot is seen in the lumen of the common femoral, femoral, popliteal, and posterior tibial veins. There is a normal response of the venous system to proximal and distal augmentation an d respiration. CONCLUSION: 1. No sonographic evidence for lower extremity DVT. Sourav Babcock MD on August 05, 2017 at 11:45 Board Certified Radiologist. This report was verified electronically.
--- NOTE | 2017-08-05 18:31 | ECHRPT ---
Indication: CVA/TIA CONCLUSIONS Normal left ventricular size. Wall thickness is normal. The left ventricular systolic function is normal with an estimated ejection fraction in the range of 55-60%. There is trace tricuspid valve regurgitation. The estimated pulmonary arterial pressure is 30 mmHg. BP: / HR: Rhythm: MEASUREMENTS (Male / Female) Normal Values Technical Quality:Good 2D ECHO LV Diastolic Diameter PLAX 5.0 cm 4.2 - 5.9 / 3.9 - 5.3 cm LV Systolic Diameter PLAX 3.4 cm IVS Diastolic Thickness 0.7 cm 0.6 - 1.0 / 0.6 - 0.9 cm LVPW Diastolic Thickness 0.6 cm 0.6 - 1.0 / 0.6 - 0.9 cm LV Relative Wall Thickness 0.2 RV Internal Dim ED PLAX 1.5 cm LA Systolic Diameter LX 3.2 cm 3.0 - 4.0 / 2.7 - 3.8 cm DOPPLER Mitral E Point Velocity 91.8 cm/s Mitral A Point Velocity 58.2 cm/s Mitral E to A Ratio 1.6 TR Peak Velocity 255.0 cm/s TR Peak Gradient 26.0 mmHg FINDINGS LEFT VENTRICLE Normal left ventricular size. Wall thickness is normal. The left ventricular systolic function is normal with an estimated ejection fraction in the range of 55-60%. RIGHT VENTRICLE Normal right ventricular size and systolic function. LEFT ATRIUM The left atrial size is normal. RIGHT ATRIUM The right atrial size is normal. ATRIAL SEPTUM Normal atrial septal thickness without atrial level shunting by limited color doppler interrogation. AORTA The aortic root and proximal ascending aorta are normal in size on limited imaging. MITRAL VALVE Structurally normal mitral valve. No mitral valve stenosis or regurgitation. AORTIC VALVE Trileaflet aortic valve. No aortic valve stenosis or regurgitation. TRICUSPID VALVE There is trace tricuspid valve regurgitation. The estimated pulmonary arterial pressure is 30 mmHg. PULMONARY VALVE The pulmonary valve is not well visualized. VESSELS The inferior vena cava is normal in size. PERICARDIUM No pericardial effusion. Abdoulaye England MD, FACC (Electronically Signed) Final Date:05 August 2017 18:30
--- NOTE | 2017-08-05 22:31 | RADRPT ---
EXAM DATE/TIME: 08/05/2017 21:16 [facility] COMPARISON: No previous studies available for comparison. INDICATIONS : Stroke follow up 08/04/17. RADIATION DOSE: 56.35 CTDIvol (mGy) MEDICAL HISTORY : None SURGICAL HISTORY : None. ENCOUNTER: Subsequent ACUITY: 1 day PAIN SCALE: 0/10 LOCATION: cranial TECHNIQUE: Multiple contiguous axial images were obtained of the head. Using automated exposure control and adj ustment of the mA and/or kV according to patient size, radiation dose was kept as low as reasonably a chievable to obtain optimal diagnostic quality images. DICOM format image data is available electro nically for review and comparison. FINDINGS: CEREBRUM: The ventricles are normal for age. No evidence of midline shift, mass lesion, hemorrhage or acute in farction. No extra-axial fluid collections are seen. POSTERIOR FOSSA: The cerebellum and brainstem are intact. The 4th ventricle is midline. The cerebellopontine angle i s unremarkable. EXTRACRANIAL: The visualized portion of the orbits is intact. SKULL: The calvaria is intact. No evidence of skull fracture. CONCLUSION: 1. No acute intracranial abnormalities. Henri Spears MD on August 05, 2017 at 22:26 Board Certified Radiologist. This report was verified electronically.
--- NOTE | 2017-08-05 23:01 | HHI.DCPOC ---
Discharge Care Plan Diagnosis: (1) Acute CVA (cerebrovascular accident) (2) Anxiety (3) Ethanolism Goals to Promote Your Health * To prevent worsening of your condition and complications * To maintain your health at the optimal level Directions to Meet Your Goals Take your medications as prescribed. Take Aspirin 81 mg daily. It is recommended that you followup with neurology when you return home. You have been evaluated by a neurologist who recommends LUKAS (transesophageal Echo) be performed by cardiology and recommends hypercoagulable workup. Avoid alcohol and avoid amphetamines. Seek emergency medical attention if change in mental status, weakness, difficulty speaking, seizure/convulsions or other concerns. Follow your dietary instruction Follow activity as directed Keep your appointments as scheduled Take your immunizations and boosters as scheduled If your symptoms worsen call your PCP, if no PCP go to Urgent Care Center or Emergency Room Smoking is Dangerous to Your Health. Avoid second hand smoke Call the 24-hour hour crisis hotline for domestic abuse at Elicia Ramon MD Aug 05, 2017 23:01
--- NOTE | 2017-08-05 23:11 | HHI.DS ---
Discharge Summary Admission Date Aug 04, 2017 at 20:45 Discharge Date: Aug 06, 2017 Admitting Diagnosis acute CVA (1) tia vs stroke Diagnosis: Principal (2) Anxiety ICD Code: F41.9 - Anxiety disorder, unspecified Diagnosis: Secondary Status: Chronic (3) Ethanolism ICD Code: F10.20 - Alcohol dependence, uncomplicated Diagnosis: Secondary Status: Acute (4) Received intravenous tissue plasminogen activator (tPA) in emergency department ICD Code: Z92.82 - Status post administration of tPA (rtPA) in a different facility within the last 24 hours prior to admission to current facility Diagnosis: Principal Status: Acute Brief History 22-year-old female came to the emergency room with history of shortness of breath sudden onset while she was with her friend at a bar at 6:30 PM. Patient says that she has had 4 cocktails starting from noon up until 6:30 PM. She was sitting and talking with her when she suddenly started to feel short of breath with some chest pain on her right side moving to the center of the chest. She felt like she could not catch her breath. Patient has experienced this kind of sensation in the past which has been diagnosed as panic attacks. Patient does have history of anxiety and depression although currently she is not on any medications. She recognizes this as her panic attack and asked her friend to continue talking to her so that she could calm down. However when her condition was not improving her friend called 911. Patient is from out of town. As per EMS when they arrived they noticed that she was initially hyperventilating followed by a witnessed syncopal episode in front of them. There was no seizure-like activity at that point. Patient was unconscious for about a minute and after that when she started to come around they noticed that her right upper and right lower extremity was weak. There was in consistency with her motor activity on the right side. However they did recognize that there was some weakness which prompted them to bring her to the emergency room. Patient was initially tachycardic but after she started to calm down her heart rate came down to the 90s as per EMS. Upon arrival she was a GCS of 15 and hemodynamically stable. CBC/BMP: 08/05/17 0353 08/05/17 0353 Significant Findings Laboratory Tests Test 08/04/17 19:50 08/04/17 20:15 08/05/17 03:53 08/05/17 04:04 Troponin I LESS THAN 0.02 NG/ML HDL Cholesterol 69.1 MG/DL (40.0-60.0) Ethyl Alcohol Level 143 MG/DL (0-5) Urine Bacteria RARE /hpf (NONE) Urine Amphetamines Screen POS (NEG) Calcium Level 7.9 MG/DL (8.5-10.1) Alkaline Phosphatase 43 U/L (45-117) Aspartate Amino Transf (AST/SGOT) 13 U/L (15-37) Chloride Level 110 MEQ/L (98-107) Imaging Last 72 hours Impressions Lower Extremity Ultrasound 08/05/17 0000 Signed Impressions: Service Date/Time: Saturday, August 05, 2017 11:17 - CONCLUSION: 1. No sonographic evidence for lower extremity DVT. Sourav Babcock MD Head CT 08/05/17 0000 Signed Impressions: Service Date/Time: Saturday, August 05, 2017 21:16 - CONCLUSION: 1. No acute intracranial abnormalities. Henri Spears MD Brain MRI 08/05/17 Signed Impressions: Service Date/Time: Saturday, August 05, 2017 09:29 - CONCLUSION: Unremarkable MRI the brain. Juan Browning MD Neck CTA [id number]/[id number] Signed Impressions: Service Date/Time: Friday, August 04, 2017 19:52 - CONCLUSION: Normal examination for a patient of this age. Henri Spears MD Head CTA [id number]/[id number] Signed Impressions: Service Date/Time: Friday, August 04, 2017 19:52 - CONCLUSION: Normal examination for a patient of this age. Henri Spears MD Head CT 08/04/17 Signed Impressions: Service Date/Time: Friday, August 04, 2017 19:48 - CONCLUSION: Normal examination for a patient of this age. Henri Spears MD Hospital Course 08/04: 22-year-old female came to the emergency room with history of shortness of breath sudden onset while she was with her friend at a bar at 6:30 PM. Patient says that she has had 4 cocktails starting from noon up until 6:30 PM. She was sitting and talking with her when she suddenly started to feel short of breath with some chest pain on her right side moving to the center of the chest. She felt like she could not catch her breath. Patient has experienced this kind of sensation in the past which has been diagnosed as panic attacks. Patient does have history of anxiety and depression although currently she is not on any medications. She recognizes this as her panic attack and asked her friend to continue talking to her so that she could calm down. However when her condition was not improving her friend called 911. Patient is from out of town. As per EMS when they arrived they noticed that she was initially hyperventilating followed by a witnessed syncopal episode in front of them. There was no seizure-like activity at that point. Patient was unconscious for about a minute and after that when she started to come around they noticed that her right upper and right lower extremity was weak. There was in consistency with her motor activity on the right side. However they did recognize that there was some weakness which prompted them to bring her to the emergency room. Patient was initially tachycardic but after she started to calm down her heart rate came down to the 90s as per EMS. Upon arrival she was a GCS of 15 and hemodynamically stable. 08/05: Patient doing well, right sided weakness much improved. She denies any complaints, no N/V, headache, photophobia, abd pain, no CP, dyspnea, nor palpitations. Follow-up CT brain is negative. Patient is alert and has been ambulating normally. Patient and her mother has requested that workup for TIA/stroke be performed as an outpatient so that she is able to make a flight home to [place] before 7 AM on 08/06/17. Dr. Ching has discussed this with them and has agreed that patient be discharged this evening as long as the CT was negative. It is recommended that she take aspirin 81 mg daily. It is recommended that she follow-up with her primary care physician within a week. It is recommended that she follow up with cardiology for LUKAS. It is recommended that she have a hypercoagulable workup. Patient denies known ingestion of amphetamines although her urine drug screen was positive. She denies any [id number] or prescription medications that may have caused false positive. Discussed the need to avoid stimulants. I have reviewed results of imaging with patient. I have provided her instructions to seek medical attention if she has any concern for bleeding, headache, mental status change, weakness, difficulty speaking, seizures/convulsions. Pt Condition on Discharge: Good Discharge Disposition: Discharge Home Discharge Instructions DIET: Follow Instructions for: Heart Healthy Diet Speech Therapy-Diet Recommends: Regular Activities you can perform: Regular-No Restrictions Follow up Referrals: Cardiology Neurology PCP Follow-up New Medications: Aspirin (Aspirin) 81 Mg Chew 81 MG CHEW DAILY for Stroke Prevention for 120 Days, #120 TAB 0 Refills Elicia Ramon MD Aug 05, 2017 23:11
[2017-08-05] MEDS ORDERED: ENOXAPARIN SODIUM 40 MG/0.4 ML SYRINGE SQ SCH (23:30)
[2017-08-05] MEDS ORDERED: ASPI-516 CHEW (23:52)
== END 2017-08-06 00:05 | disposition home or self-care (01) | DRG 62 ==
LOC: NEPC 19:28 → NEDA 20:45 → N03A 22:19
PROVIDERS: ADMIT Internal Medicine Critical Care Medicine; ATTEND Internal Medicine Critical Care Medicine
DX: I63.9 Cerebral infarction, unspecified (principal); G81.91 Hemiplegia, unspecified affecting right dominant side; F41.9 Anxiety disorder, unspecified; J45.909 Unspecified asthma, uncomplicated; Z72.89 Other problems related to lifestyle; Y90.6 Blood alcohol level of 120-199 mg/100 ml
CPT/HCPCS: 51702; 70450; 70496; 70498; 70551; 80048; 80053; 80061; 80307; 81001; 82550; 82607; 83036; 83735; 84100; 84443; 84484; 84702; 85025; 85384; 85610; 85652; 85730; 86850; 86900; 86901; 93005; 93306; 93970; J2997; J7030; Q9967